=== PATIENT | male | born 1970 | race Caucasian/White ===

== ENCOUNTER 2022-12-23 09:06 | Emergency (ER) | payer OTHER ==
[2022-12-23] MEDS ORDERED: FLUORESCEIN SODIUM 1 MG/WRAP ONE (09:33)
[2022-12-23] MEDS ORDERED: TETRACAINE HCL 0.5% 4ML OPTH ONE (09:33)
--- NOTE | 2022-12-23 09:48 | ER ---
Nurse's Notes [facility] Name: Otto Manning Age: 52 yrs Sex: Male : 1970 Arrival Date: 12/23/2022 Time: 09:06 Bed 8 Private MD: Diagnosis: Injury of conjunctiva and corneal abrasion without foreign body;Injury of conjunctiva and corneal abrasion without foreign body, right eye Presentation: 12/23 09:09 Chief complaint: Patient states: he had a solis in his eye this morning and he believes ap3 it bit him on the inside corner of his eye. patient currently rates his eye pain as a 9/10 on the pain scale. Coronavirus screen: At this time, the client does not indicate any symptoms associated with coronavirus-19. Ebola Screen: No symptoms or risks identified at this time. Mechanism of Injury: bug. Initial Sepsis Screen: Does the patient meet any 2 criteria? No. Patient's initial sepsis screen is negative. Does the patient have a suspected source of infection? No. Patient's initial sepsis screen is negative. Risk Assessment: Do you want to hurt yourself or someone else? Patient reports no desire to harm self or others. Onset of symptoms was December 23, 2022. 09:09 Method Of Arrival: Law Enforcement: [place] [employer] ap3 09:09 Acuity: MATTHEW 4 ap3 Triage Assessment: 09:11 General: Appears in no apparent distress. Behavior is calm, cooperative, appropriate ap3 for age. Pain: Complains of pain in right eye. EENT: Sclera/Cornea are reddened in outer aspect of conjuctiva of right eye, iris of right eye and inner aspect of conjuctiva of right eye. Neuro: Level of Consciousness is awake, alert, obeys commands, Oriented to person, place, time, situation. Cardiovascular: Patient's skin is warm and dry. Respiratory: Airway is patent Respiratory effort is even, unlabored, Respiratory pattern is regular, symmetrical. Historical: - Allergies: 09:10 No Known Allergies; ap3 - Home Meds: 09:10 unknown bipolar medication [Active]; ap3 - PMHx: 09:10 Bipolar disorder; ap3 - Immunization history:: Last tetanus immunization: up to date. - Social history:: Smoking status: Patient/guardian denies using tobacco. Screenin:12 [facility] ED Fall Risk Assessment (Adult) History of falling in the last 3 months, ap3 including since admission No falls in past 3 months (0 pts). Abuse screen: Denies threats or abuse. Nutritional screening: No deficits noted. Tuberculosis screening: No symptoms or risk factors identified. Assessment: 09:13 EENT: Eyes right eye swollen and reddened at this time. ap3 Vital Signs: 09:09 BP 111 / 77; Pulse 60; Resp 17; Temp 98.6; Pulse Ox 100% ; Weight 63.5 kg; Pain 9/10; ap3 09:09 Pain Scale: Adult ap3 ED Course: 09:09 Patient arrived in ED. ap3 09:09 Domenico Foy MD is Attending Physician. jr11 09:10 Triage completed. ap3 09:12 Arm band placed on right wrist. ap3 09:12 Patient has correct armband on for positive identification. Bed in low position. Call ap3 light in reach. Security at bedside. Pulse ox on. NIBP on. 09:23 Renetta Godfrey RN is Primary Nurse. ap3 09:52 Provided Education on: discharge instructions. ap3 09:52 No provider procedures requiring assistance completed. Patient did not have IV access ap3 during this emergency room visit. Administered Medications: 09:30 Drug: Tetracaine Ophthalmic Drops 0.5 % 1 drops Route: Ophthalmic; Site: right eye; ap3 Medication: 09:12 VIS not applicable for this client. ap3 Outcome: 09:47 Discharge ordered by . jr11 09:52 Discharged to Law Enforcement ap3 09:52 Condition: good 09:52 Discharge instructions given to patient, police, Instructed on discharge instructions, follow up and referral plans. medication usage, Demonstrated understanding of instructions, follow-up care, medications, Prescriptions given X 1. 09:53 Patient left the ED. ap3 Signatures: Renetta Godfrey RN RN ap3 Domenico Foy MD MD jr11
--- NOTE | 2022-12-23 09:48 | EDPHYS ---
Physician Documentation [facility] Name: Otto Manning Age: 52 yrs Sex: Male : 1970 Arrival Date: 12/23/2022 Time: 09:06 Bed 8 Private MD: ED Physician Domenico Foy HPI: 12/23 09:24 This 52 yrs old Male presents to ER via Law Enforcement with complaints of Eye Pain. jr11 09:24 The patient is experiencing blurred vision, foreign body sensation, The patient jr11 sustained solis fell to R eye ball . Onset: The symptoms/episode began/occurred just prior to arrival. Duration: the symptoms are continuous. Associated signs and symptoms: Pertinent negatives: chills, ear ache, headache. Pt has been scratching R eye . Historical: - Allergies: 09:10 No Known Allergies; ap3 - Home Meds: 09:10 unknown bipolar medication [Active]; ap3 - PMHx: 09:10 Bipolar disorder; ap3 - Immunization history:: Last tetanus immunization: up to date. - Social history:: Smoking status: Patient/guardian denies using tobacco. ROS: 09:24 All other systems are negative. jr11 Exam: 09:24 Head/Face: Normocephalic, atraumatic. Eyes: R eye injection with edema ENT: Nares jr11 patent. No nasal discharge, no septal abnormalities noted. Oropharynx with no redness, swelling, or masses, exudates, or evidence of obstruction, uvula midline. Mucous membranes moist. Neck: Trachea midline, no thyromegaly or masses palpated, and no cervical lymphadenopathy. Supple, full range of motion without nuchal rigidity, or vertebral point tenderness. No Meningismus. Chest/axilla: Normal chest wall appearance and motion. Nontender with no deformity. No lesions are appreciated. Cardiovascular: Regular rate and rhythm with a normal S1 and S2. No gallops, murmurs, or rubs. Normal PMI, no JVD. No pulse deficits. Respiratory: Lungs have equal breath sounds bilaterally, clear to auscultation and percussion. No rales, rhonchi or wheezes noted. No increased work of breathing, no retractions or nasal flaring. Abdomen/GI: Soft, non-tender, with normal bowel sounds. No distension or tympany. No guarding or rebound. No evidence of tenderness throughout. Back: No spinal tenderness. No costovertebral tenderness. Full range of motion. Skin: Warm, dry with normal turgor. Normal color with no rashes, no lesions, and no evidence of cellulitis. MS/ Extremity: Pulses equal, no cyanosis. Neurovascular intact. Full, normal range of motion. Vital Signs: 09:09 BP 111 / 77; Pulse 60; Resp 17; Temp 98.6; Pulse Ox 100% ; Weight 63.5 kg; Pain 9/10; ap3 09:09 Pain Scale: Adult ap3 MDM: 09:22 Patient medically screened. jr11 09:24 Differential diagnosis: Corneal abrasion of right eye. Corneal ulcer of right eye. Data jr11 reviewed: vital signs, nurses notes. 09:46 ED course: R eye with corneal abrasion 9 oclock sub cm . jr11 12/23 09:22 Order name: Fluoresene Opth strip; Complete Time: 09:23 jr11 Administered Medications: 09:30 Drug: Tetracaine Ophthalmic Drops 0.5 % 1 drops Route: Ophthalmic; Site: right eye; ap3 Disposition Summary: 12/23/22 09:47 Discharge Ordered Location: Home jr11 Condition: Stable jr11 Diagnosis - Injury of conjunctiva and corneal abrasion without foreign body jr11 - Injury of conjunctiva and corneal abrasion without foreign body, right eye jr11 Discharge Instructions: - Discharge Summary Sheet jr11 - Corneal Abrasion jr11 Forms: - Medication Reconciliation Form jr11 - Thank You Letter jr11 - Antibiotic Education jr11 - Prescription Opioid Use jr11 - Patient Portal Instructions jr11 - Leadership Thank You Letter jr11 Prescriptions: - Maxitrol 3.5mg/mL-10,000 unit/mL-0.1 % Ophthalmic drops, suspension - instill 1 drop by OPHTHALMIC route every 6 hours R eye; 1 unit; Refills: 0, jr11 Product Selection Permitted Signatures: Renetta Godfrey RN RN ap3 Domenico Foy MD MD jr11
[2022-12-23 09:57] VITALS: BP 111/77; TEMP 98.6; O2SAT 100
== END 2022-12-23 09:53 | disposition home or self-care (01) ==
LOC: ER 09:06
DX: S05.01XA Injury of conjunctiva and corneal abrasion without foreign body, right eye, initial encounter (principal); X58.XXXA Exposure to other specified factors, initial encounter; Y93.9 Activity, unspecified; Y92.019 Unspecified place in single-family (private) house as the place of occurrence of the external cause; H53.8 Other visual disturbances
CPT/HCPCS: 99284